=== PATIENT | female | born 1975 | race Caucasian/White ===

== ENCOUNTER 2017-08-10 16:47 | Emergency (ER) | payer OTHER ==
[~2017-08-10] VITALS: Ht 167.6 cm; Wt 68.0 kg
[2017-08-10] MEDS ORDERED: ENOXAPARIN40 MG/0.1 SUBQ (16:55)
[2017-08-10] MEDS ORDERED: EFFEXOR XR37.5 MG PO (16:55)
[2017-08-10] MEDS ORDERED: BETAMETHASONE D15 G3 TOP (16:56)
[2017-08-10 17:51] LABS: APTT 23.1 Seconds (25.0-31.3); INR 1.1; PROTIME 10.3 Seconds (9.20-11.50)
[2017-08-10 19:05] VITALS: BP 126/85
== END 2017-08-10 19:06 | disposition home or self-care (01) ==
LOC: M.ERS 16:47
PROVIDERS: Personal Emergency Response Attendant
DX: R07.89 Other chest pain (principal); S01.312A Laceration without foreign body of left ear, initial encounter; Z90.710 Acquired absence of both cervix and uterus; Z98.890 Other specified postprocedural states; Z88.6 Allergy status to analgesic agent; Z88.5 Allergy status to narcotic agent; Z91.012 Allergy to eggs; Z88.0 Allergy status to penicillin; Z88.2 Allergy status to sulfonamides; Y04.8XXA Assault by other bodily force, initial encounter; Y93.89 Activity, other specified; Y92.89 Other specified places as the place of occurrence of the external cause; Y99.8 Other external cause status